=== PATIENT | male | born 2005 | race Caucasian/White ===

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

== ENCOUNTER 2024-03-15 10:45 | Outpatient (CLI) | payer OTHER ==
--- NOTE | 2024-03-16 02:11 | XRAY Report ---
PROCEDURE: Ankle 3+V LT INDICATIONS: SPRAIN OF UNSPECIFIED LIGAMENT OF LEFT ANKLE TECHNIQUE: 3 views of the ankle were acquired. COMPARISON: None FINDINGS: Bones: No fractures or dislocations. Ankle mortise is normally aligned. No suspicious bony lesions . Small ossicle adjacent to the medial malleolus Soft tissues: Lateral soft tissue swelling IMPRESSION: Lateral soft tissue swelling. Small ossicle just to the medial malleolus. Less likely differential wo uld include small nondisplaced avulsion fracture. Correlate with site of pain Reviewed by: Jn Lynn MD on 03/16/2024 1:10 AM ONUR Approved by: Jn Lynn MD on 03/16/2024 1:10 AM ONUR Station ID: [id number]
== END 2024-03-15 11:00 | disposition home or self-care (01) ==
LOC: DI.N 10:45
PROVIDERS: ATTEND Physician Assistant Medical
DX: R22.42 Localized swelling, mass and lump, left lower limb (principal)